=== PATIENT | male | born 1960 | race Caucasian/White ===

== ENCOUNTER 2022-11-04 23:30 | Emergency (ER) | payer MEDICAID, MEDICARE ==
[~2022-11-04] VITALS: Ht 177.8 cm; Wt 86.2 kg
[2022-11-04 23:43] VITALS: BP 107/53; PULSE 66; RESP 20; TEMP 98; O2SAT 97
[2022-11-05 00:13] LABS: FLU A ANTIGEN negative (NEGATIVE); FLU B ANTIGEN NEGATIVE (NEGATIVE)
[2022-11-05] MEDS ORDERED: PANTOPRAZOLE 40 MG TABEC PO ONE (02:25)
[2022-11-05] MEDS ORDERED: ALUMINUM HYD/MAG/SIMETHICONE 30 ML UDC PO ONE (02:25)
[2022-11-05] MEDS ORDERED: DEXAMETHASONE 4 MG/ML VIAL PO ONE (02:35)
[2022-11-05] MEDS ORDERED: SUCR1TAB35 PO (03:13)
[2022-11-05] MEDS ORDERED: BENZ-300 PO (03:13)
[2022-11-05] MEDS ORDERED: OMEP40EC23 PO (03:13)
== END 2022-11-05 03:26 | disposition home or self-care (01) ==
LOC: MED 23:30
DX: K20.90 Esophagitis, unspecified without bleeding (principal); Z20.822 Contact with and (suspected) exposure to COVID-19; E03.9 Hypothyroidism, unspecified; Z79.899 Other long term (current) drug therapy
CPT/HCPCS: 87426; 87804; 99284; J1100